=== PATIENT | male | born 1960 | race Caucasian/White ===

== ENCOUNTER 2020-03-21 21:23 | Observation (INO) | payer OTHER ==
[~2020-03-21] VITALS: Ht 190.5 cm; Wt 117.3 kg
[2020-03-21 21:54] LABS: BASO # 0.1 x10^3/uL (0.0-0.2); BASO % 1 % (0-3); EOS # 0.2 x10^3/uL (0.0-0.7); EOS % 2 % (0-3); HEMATOCRIT 42.9 % (39.0-53.0); HEMOGLOBIN 14.3 g/dL (13.0-17.5); LYMPH # 3.2 x10^3/uL (1.0-4.8); LYMPH % 32 % (24-48); MEAN CORPUSCULAR HEMOGLOBIN 30 pg (25-35); MEAN CORPUSCULAR HGB CONC 34 g/dL (31-37); MEAN CORPUSCULAR VOLUME 91 fL (79-100); MONO # 0.7 x10^3/uL (0.0-1.1); MONO % 7 % (0-9); NEUT % 59 % (31-73); PLATELET COUNT 196 x10^3/uL (140-400); RED BLOOD COUNT 4.73 x10^6/uL (4.30-5.70); RED CELL DISTRIBUTION WIDTH 12.8 % (11.5-14.5); WHITE BLOOD COUNT 10.1 x10^3/uL (4.0-11.0)
--- NOTE | 2020-03-21 21:58 | PHYS DOC ---
General Adult EDM: Chief Complaint: TRAUMA ALERT HPI: HPI: Patient is a 59 year old male who presents with here by EMS after he was at [employer] and did not feel good and he stood up and became dizzy, nauseated and passed out hitting his right top of his head on the table causing a 1 inch laceration. Patient also complains of right shoulder blade pain. He rates it is generalized aching at a 2 out of 10. He states is mostly his right shoulder blade that hurts. Patient states he is in need of a tetanus shot. Witnesses stated that he lost consciousness for about 10 seconds. It does appear that patient lost his bladder. Patient takes a baby aspirin a day. His other history is hypertension, high cholesterol, diabetes. States he does not currently have a headache or feel dizzy or nauseated. Patient denies abdominal pain, neck pain, back pain, chest pain, vision changes, numbness or tingling, headache, focal weakness. Patient is moving all extremities. Review of Systems: Review of Systems: Constitutional: Denies fever or chills. [] Eyes: Denies change in visual acuity. [] HENT: Denies nasal congestion or sore throat. [] Respiratory: Denies cough or shortness of breath. [] Cardiovascular: Denies chest pain or edema. [] GI: Denies abdominal pain, nausea, vomiting, bloody stools or diarrhea. [] : Denies dysuria. [] Musculoskeletal: Denies back pain or joint pain. [] Integument: Denies rash. [] Neurologic: Denies headache, focal weakness or sensory changes. [] Endocrine: Denies polyuria or polydipsia. [] Lymphatic: Denies swollen glands. [] Psychiatric: Denies depression or anxiety. [] Heart Score: Risk Factors: Risk Factors: DM, Current or recent (<one month) smoker, HTN, HLP, family h istory of CAD, obesity. Risk Scores: Score 0 - 3: 2.5% MACE over next 6 weeks - Discharge Home Score 4 - 6: 20.3% MACE over next 6 weeks - Admit for Clinical Observation Score 7 - 10: 72.7% MACE over next 6 weeks - Early Invasive Strategies Current Medications: Current Medications Medications (Trade) Dose Ordered Sig/Sharda Start Time Stop Time Status Last Admin Dose Admin Lidocaine HCl (Lidocaine 1% 20ml Vial) 20 ml 1X ONCE 03/21/20 22:00 03/21/20 22:01 Allergies: Allergies: Allergies Coded Allergies Type Severity Reaction Last Updated Verified No Known Drug Allergies 03/21/20 No Physical Exam: PE: Constitutional: Well developed, well nourished, no acute distress, non-toxic appearance. [] HENT: Normocephalic, atraumatic, bilateral external ears normal, oropharynx moist, no oral exudates, nose normal. [] Eyes: PERRLA, EOMI, conjunctiva normal, no discharge. [] Neck: Normal range of motion, no tenderness, supple, no stridor. [] Cardiovascular:Heart rate regular rhythm, no murmur [] Lungs & Thorax: Bilateral breath sounds clear to auscultation [] Abdomen: Bowel sounds normal, soft, no tenderness, no masses, no pulsatile masses. [] Skin: Warm, dry, no erythema, no rash. Laceration to the scalp. [] Back: Right shoulder blade tenderness, no CVA tenderness. [] Extremities: No tenderness, no cyanosis, no clubbing, ROM intact, no edema. [] Neurologic: Alert and oriented X 3, normal motor function, normal sensory function, no focal deficits noted. [] Psychologic: Affect normal, judgement normal, mood normal. [] EKG: EK and read by Dr. Meyer is sinus rhythm and no STEMI Radiology/Procedures: Radiology/Procedures: [] Impression: IMAGING REPORT Signed PATIENT: ANANDA RUIZACCOUNT: [id number] : 1960 LOCATION: ER AGE: 59 SEX: M EXAM STATUS: REG ER ORD. PHYSICIAN: ALFREDO RANKIN APRN REASON: pain, syncope, fall PROCEDURE: SHOULDER 2+V RIGHT Right shoulder AP and scapular x-rays 2 views HISTORY: Syncope, fall, right shoulder pain. FINDINGS: No fracture. No dislocation. No arthritic change. Soft tissues are unremarkable. IMPRESSION: No acute osseous injury of the right shoulder. PA chest and 4 oblique right rib x-rays HISTORY: Fall, syncope, pain. FINDINGS: Heart size upper limits normal. Mediastinal silhouette is normal. No pneumothorax, pulmonary opacities or pleural effusions. Slight irregularity of the right lateral seventh rib only apparent on one of the lower oblique x-rays, a small nondisplaced acute fracture cannot be excluded although this could be an old healed traumatic deformity rather than acute injury. IMPRESSION: No acute process in the chest. Mild irregularity of the right lateral seventh rib a nondisplaced acute traumatic fracture is not excluded. See above. Electronically signed by: Desi Dover MD (03/21/2020 11:40 PM) [facility] DICTATED and SIGNED BY: DESI DOVER MD DATE: 03/21/20 [id number] Course & Med Decision Making: Course & Med Decision Making Pertinent Labs and Imaging studies reviewed. (See chart for details) See HPI. We have placed the patient in a c-collar. Full range of motion of the neck. Full range of motion of all extremities and joints. No joint laxities. No crepitus or cutaneous emphysema over the chest or rib cage. There is no tenderness over her chest or ribs. No focal bony spinal tenderness. PERRLA. No deformity to the skull or the maxillofacial area. EKG shows a sinus rhythm with ventricular premature complexes. CT shows no acute findings. Blood work is unremarkable. I have ordered a incentive spirometer for the patient. Laceration repair Location: Wound and top of scalp laceration Local anesthesia: LETs Interrupted sutures/Internal sutures: 4 Staple Nerve/ligament/muscle damage: None Cleaning and irrigation: Saline and chlorhexidine The appropriate timeout was taken. The area was prepped and draped in the usual sterile fashion. The wound was copiously irrigated with normal saline and chlorhexidine. Patient tolerated well without complication. Dressing was applied to the area follow-up education is given to observe for signs and symptoms of infection, bleeding and to follow-up promptly if these occur. Patient can return in 48 hours for a wound recheck. Sutures to be removed in 7 to 10 days. [] Dragon Disclaimer: Dragon Disclaimer: This electronic medical record was generated, in whole or in part, using a voice recognition dictation system. Departure Departure Impression: Primary Impression: Syncope Qualified Codes: R55 - Syncope and collapse Additional Impressions: Rib fracture Qualified Codes: S22.31XA - Fracture of one rib, right side, initial encounter for closed fracture Scalp laceration Qualified Codes: S01.01XA - Laceration without foreign body of scalp, initial encounter Disposition: 09 ADMITTED INPT THIS HOSP Admitting Physician: DANILO Condition: STABLE Referrals: DEMI ROGERS MD (PCP) ALFREDO RANKIN APRN Mar 21, 2020 21:58
[2020-03-21] MEDS ORDERED: LIDOCAINE 1% Multi-Dose 20 ML VIAL. INJ ONE (22:00)
[2020-03-21 22:11] LABS: ALBUMIN 3.9 g/dL (3.4-5.0); ALBUMIN/GLOBULIN RATIO 1.1 (1.0-1.7); CALCIUM 9.4 mg/dL (8.5-10.1); CREATININE 1.3 mg/dL (0.7-1.3); GFR 56.1; TOTAL BILIRUBIN 0.4 mg/dL (0.2-1.0); TOTAL PROTEIN 7.5 g/dL (6.4-8.2)
[2020-03-21] MEDS ORDERED: LIDOCAINE/EPI/TETRACAINE TOPICAL GEL 3 ML. TP ONE (23:00)
[2020-03-21] MEDS ORDERED: DIPH,PERTUSS(ACELL),TET VAC/PF 0.5 ML SYRINGE. VAX IM ONE (23:00)
--- NOTE | 2020-03-21 23:16 | RAD ---
CT head without contrast. CT cervical spine without contrast PQRS statement: CT scans at this facility use dose reduction including either automated exposure cont rol, iterative reconstructions, and /or weight based radiation dosing via mA and kV modification when appropriate to reduce radiation dose to as low as reasonably achievable. HISTORY: Syncope. Fall. Shoulder pain. CT head findings:No intracranial hemorrhage, mass, hydrocephalus, extra-axial fluid collections or in farction. Orbits, mastoids and bones are unremarkable. IMPRESSION: No acute intracranial CT abnormality. CT cervical spine findings: Craniocervical junction intact. Cervical vertebral body height and alignm ent intact. No fracture of the cervical spine. There are some shallow disc bulges and disc osteophyte s of the cervical spine. There may be mild spinal canal stenoses. Lung apices and paraspinal tissues are unremarkable. IMPRESSION: No acute osseous injury of the cervical spine. Cervical disc disease. Electronically signed by: Fredi Dover MD (03/21/2020 11:10 PM) [facility]
--- NOTE | 2020-03-21 23:47 | RAD ---
Right shoulder AP and scapular x-rays 2 views HISTORY: Syncope, fall, right shoulder pain. FINDINGS: No fracture. No dislocation. No arthritic change. Soft tissues are unremarkable. IMPRESSION: No acute osseous injury of the right shoulder. PA chest and 4 oblique right rib x-rays HISTORY: Fall, syncope, pain. FINDINGS: Heart size upper limits normal. Mediastinal silhouette is normal. No pneumothorax, pulmonar y opacities or pleural effusions. Slight irregularity of the right lateral seventh rib only apparent on one of the lower oblique x-rays, a small nondisplaced acute fracture cannot be excluded although t his could be an old healed traumatic deformity rather than acute injury. IMPRESSION: No acute process in the chest. Mild irregularity of the right lateral seventh rib a nondi splaced acute traumatic fracture is not excluded. See above. Electronically signed by: Fredi Dover MD (03/21/2020 11:40 PM) [facility] [place]
[2020-03-22] VITALS (7 sets, daily range): BP systolic 115–151; BP diastolic 57–87
[2020-03-22] MEDS ORDERED: HALOPERIDOL LACTATE 5 MG/ML VIAL. IVP PRN (01:45)
[2020-03-22] MEDS ORDERED: ONDANSETRON PF 4 MG/2 ML VIAL. IVP PRN (01:45)
[2020-03-22] MEDS ORDERED: diphenhydrAMINE 50 MG/ML VIAL IVP PRN (01:45)
[2020-03-22] MEDS ORDERED: cloNIDine HCL 0.1 MG TABLET PO PRN (01:45)
[2020-03-22] MEDS: MORPHINE SULFATE 2 MG/ML VIAL. IV PRN ×3 (01:58→09:26)
--- NOTE | 2020-03-22 04:41 | EKG ---
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
--- NOTE | 2020-03-22 07:22 | PDOC1 ---
History and Physical Date of Admission Date of Admission DATE: 03/22/20 TIME: 07:20 Identification/Chief Complaint Chief Complaint Syncope Source Source: Patient History of Present Illness History of Present Illness Mr Puri is a 59 year old male w/ PMHx HLD, HTN, DM2 who presents with here by EMS after he was at [employer] and was noted to lose co nsciousness and fall. Prior to this episode he did not feel good and he stood up and became dizzy, nauseated and passed out hitting his right top of his head on the table causing a 1 inch laceration. Patient also complains of right shoulder blade pain. He rates it is generalized aching at a 2 out of 10. He states is mostly his right shoulder blade that hurts as well as his 7th lateral rib. Witnesses stated that he lost consciousness for about 10 seconds, including his and daughter. He did lose bladder function. No seizure like activity noted. No confusion after the episode. States he does not currently have a headache or feel dizzy or nauseated. Patient denies abdominal pain, neck pain, back pain, chest pain, vision changes, numbness or tingling, headache, focal weakness. Patient is moving all extremities. He does note prior to eating they went bowling and he had several, at least 4, beers EKG sinus rhythm and no STEMI with some PVCs CXR and shoulder x-ray with no acute findings, however right lateral 7th rib appears fractured CT shows no acute findings. Blood work is unremarkable. I have ordered a incentive spirometer for the patient. 4 dora applied to scalp. Patient given a tetanus shot. Admitted for further care Past Medical History Cardiovascular: HTN, Hyperlipidemia Endocrine: Diabetes Past Surgical History Past Surgical History: No pertinent history Family History Family History: Diabetes, High Cholestrol, Hypertension Social History Smoke: No ALCOHOL: social Drugs: None Current Problem List Problem List Problems Medical Problems: (1) Rib fracture Status: Acute (2) Scalp laceration Status: Acute (3) Syncope Status: Acute Current Medications Current Medications Current Medications Lidocaine HCl (Lidocaine 1% 20ml Vial) 20 ml 1X ONCE INJ Last administered on 03/21/20at 23:02; Start 03/21/20 at 22:00; Stop 03/21/20 at 22:01; Status DC Diphtheria/ Tetanus/Acell Pertussis (ADACEL TDap SYRINGE) 0.5 ml ONCE ONCE VAX IM Last administered on 03/21/20at 23:03; Start 03/21/20 at 23:00; Stop 03/21/20 at 23:01; Status DC Tetracaine/ Epinephrine/ Lidocaine (Let (Hfed-Urmoahe-Yyvuu) Gel) 3 ml 1X ONCE TP Last administered on 03/21/20at 23:02; Start 03/21/20 at 23:00; Stop 03/21/20 at 23:01; Status DC Morphine Sulfate (Morphine Sulfate) 2 mg PRN Q2HR PRN IV SEVERE PAIN 7-10 Last administered on 03/22/20at 06:35; Start 03/22/20 at 01:45 Ondansetron HCl (Zofran) 4 mg PRN Q6HRS PRN IVP NAUSEA/VOMITING 1ST CHOICE Last administered on 03/22/20at 01:58; Start 03/22/20 at 01:45 Lorazepam (Ativan Inj) 2 mg PRN Q1HR PRN IV For CIWA 8-14; Start 03/22/20 at 01:45 Lorazepam (Ativan Inj) 4 mg PRN Q1HR PRN IV For CIWA 15 or greater; Start 03/22/20 at 01:45 Haloperidol Lactate (Haldol Inj) 5 mg PRN Q4HRS PRN IVP Hallucinatns,Confusn,Delirium; Start 03/22/20 at 01:45 Diphenhydramine HCl (Benadryl) 25 mg PRN Q15MIN PRN IVP EPS symptoms 2'Haldol admin; Start 03/22/20 at 01:45 Clonidine HCl (Catapres) 0.1 mg PRN Q1HR PRN PO SBP > 180 or DBP > 100, MRX3; Start 03/22/20 at 01:45 Allergies Allergies: Coded Allergies: No Known Drug Allergies (Unverified , 03/21/20) ROS General: No: Chills, Night Sweats, Fatigue, Malaise, Appetite, Other PSYCHOLOGICAL ROS: No: Anxiety, Behavioral Disorder, Concentration difficultie, Decreased libido, Depression, Disorientation, Hallucinations, Hostility, Irritablity, Memory difficulties, Mood Swings, Obsessive thoughts, Physical abuse, Sexual abuse, Sleep disturbances, Suicidal ideation, Other Eyes: No Blurry vision, No Decreased vision, No Double vision, No Dry eyes, No Excessive tearing, No Eye Pain, No Itchy Eyes, No Loss of vision, No Photophobia, No Scotomata, No Uses contacts, No Uses glasses, No Other HEENT: YES: Heacaches; No: Visual Changes, Hearing change, Nasal congestion, Nasal discharge, Oral lesions, Sinus pain, Sore Throat, Epistaxis, Sneezing, Snoring, Tinnitus, Ve rtigo, Vocal changes, Other Hematological and Lymphatic: No: Bleeding Problems, Blood Clots, Blood Transfu sions, Brusing, Night Sweats, Pallor, Swollen Lymph Nodes, Other ENDOCRINE: No: Breast Changes, Galactorrhea, Hair Pattern Changes, Hot Flashes, Malaise/lethargy, Mood Swings, Palpitations, Polydipsia/polyuria, Skin Changes, Temperature Intolerance, Unexpected Weight Changes, Other Breast: No New/Changing Breast Lumps, No Nipple changes, No Nipple discharge, No Other Respiratory: No: Cough, Hemoptysis, Orthopnea, Pleuritic Pain, Shortness of breath, SOB with excertion, Sputum Changes, Stridor, Tachypnea, Wheezing, Other Cardiovascular: yes Chest Pain; No Palpitations, No Orthopnea, No Paroxysmal Noc. Dyspnea, No Edema, No Lt Headedness, No Other Gastrointestinal: No Nausea, No Vomiting, No Abdominal Pain, No Diarrhea, No Constipation, No Melena, No Hematochezia, No Other Genitourinary: No Dysuria, No Frequency, No Incontinence, No Hematuria, No Retention, No Discharge, No Urgency, No Pain, No Flank Pain, No Other, No , No , No , No , No , No , No Musculoskeletal: No Gait Disturbance, No Joint Pain, No Joint Stiffness, No Joint Swelling, No Muscle Pain, No Muscular Weakness, No Pain In:, No Swelling In:, No Other Neurological: No Behavorial Changes, No Bowel/Bladder ControlChng, No Confusio n, No Dizziness, No Gait Disturbance, No Headaches, No Impaired Coord/balance, No Memory Loss, No Numbness/Tingling, No Seizures, No Speech Problems, No Tremors, No Visual Changes, No Weakness, No Other Skin: No Dry Skin, No Eczema, No Hair Changes, No Lumps, No Mole Changes, No Mottling, No Nail Changes, No Pruritus, No Rash, No Skin Lesion Changes, No Other, No Acne Physical Exam General: Alert, Oriented X3, Cooperative, No acute distress HEENT: Atraumatic, PERRLA, EOMI, Mucous membr. moist/pink, Other (Right midline frontal scalp laceration, 4 dora. Well approximated) Lungs: Clear to auscultation, Normal air movement Abdomen: Normal bowel sounds, Soft, No tenderness, No hepatosplenomegaly, No masses Rectal Exam: not examined Extremities: No clubbing, No cyanosis, No edema, Normal pulses, No tenderness/swelling Skin: No rashes, No breakdown, No significant lesion Neuro: Normal gait, Normal speech, Strength at 5/5 X4 ext, Normal tone, Sensation intact, Cranial nerves 3-12 NL, Reflexes 2+ Psych/Mental Status: Mental status NL, Mood NL Vitals Vitals Vital Signs Date Time Temp Pulse Resp B/P (MAP) Pulse Ox O2 Delivery O2 Flow Rate FiO2 03/22/20 06:35 18 94 Room Air 03/22/20 03:35 98.1 72 116/68 (84) 98.1 Labs Labs Laboratory Tests Test 03/21/20 21:35 White Blood Count 10.1 x10^3/uL (4.0-11.0) Red Blood Count 4.73 x10^6/uL (4.30-5.70) Hemoglobin 14.3 g/dL (13.0-17.5) Hematocrit 42.9 % (39.0-53.0) Mean Corpuscular Volume 91 fL (79-100) Mean Corpuscular Hemoglobin 30 pg (25-35) Mean Corpuscular Hemoglobin Concent 34 g/dL (31-37) Red Cell Distribution Width 12.8 % (11.5-14.5) Platelet Count 196 x10^3/uL (140-400) Neutrophils (%) (Auto) 59 % (31-73) Lymphocytes (%) (Auto) 32 % (24-48) Monocytes (%) (Auto) 7 % (0-9) Eosinophils (%) (Auto) 2 % (0-3) Basophils (%) (Auto) 1 % (0-3) Neutrophils # (Auto) 6.0 x10^3/uL (1.8-7.7) Lymphocytes # (Auto) 3.2 x10^3/uL (1.0-4.8) Monocytes # (Auto) 0.7 x10^3/uL (0.0-1.1) Eosinophils # (Auto) 0.2 x10^3/uL (0.0-0.7) Basophils # (Auto) 0.1 x10^3/uL (0.0-0.2) Sodium Level 142 mmol/L (136-145) Potassium Level 4.0 mmol/L (3.5-5.1) Chloride Level 105 mmol/L (98-107) Carbon Dioxide Level 24 mmol/L (21-32) Anion Gap 13 (6-14) Blood Urea Nitrogen 22 mg/dL (8-26) Creatinine 1.3 mg/dL (0.7-1.3) Estimated GFR (Cockcroft-Gault) 56.1 BUN/Creatinine Ratio 17 (6-20) Glucose Level 129 mg/dL (70-99) Calcium Level 9.4 mg/dL (8.5-10.1) Total Bilirubin 0.4 mg/dL (0.2-1.0) Aspartate Amino Transf (AST/SGOT) 31 U/L (15-37) Alanine Aminotransferase (ALT/SGPT) 45 U/L (16-63) Alkaline Phosphatase 92 U/L (46-116) Troponin I Quantitative < 0.017 ng/mL (0.000-0.055) LF-Wnl-S-Type Natriuretic Peptide 72 pg/mL (0-124) Total Protein 7.5 g/dL (6.4-8.2) Albumin 3.9 g/dL (3.4-5.0) Albumin/Globulin Ratio 1.1 (1.0-1.7) Laboratory Tests Test 03/21/20 21:35 White Blood Count 10.1 x10^3/uL (4.0-11.0) Red Blood Count 4.73 x10^6/uL (4.30-5.70) Hemoglobin 14.3 g/dL (13.0-17.5) Hematocrit 42.9 % (39.0-53.0) Mean Corpuscular Volume 91 fL (79-100) Mean Corpuscular Hemoglobin 30 pg (25-35) Mean Corpuscular Hemoglobin Concent 34 g/dL (31-37) Red Cell Distribution Width 12.8 % (11.5-14.5) Platelet Count 196 x10^3/uL (140-400) Neutrophils (%) (Auto) 59 % (31-73) Lymphocytes (%) (Auto) 32 % (24-48) Monocytes (%) (Auto) 7 % (0-9) Eosinophils (%) (Auto) 2 % (0-3) Basophils (%) (Auto) 1 % (0-3) Neutrophils # (Auto) 6.0 x10^3/uL (1.8-7.7) Lymphocytes # (Auto) 3.2 x10^3/uL (1.0-4.8) Monocytes # (Auto) 0.7 x10^3/uL (0.0-1.1) Eosinophils # (Auto) 0.2 x10^3/uL (0.0-0.7) Basophils # (Auto) 0.1 x10^3/uL (0.0-0.2) Sodium Level 142 mmol/L (136-145) Potassium Level 4.0 mmol/L (3.5-5.1) Chloride Level 105 mmol/L (98-107) Carbon Dioxide Level 24 mmol/L (21-32) Anion Gap 13 (6-14) Blood Urea Nitrogen 22 mg/dL (8-26) Creatinine 1.3 mg/dL (0.7-1.3) Estimated GFR (Cockcroft-Gault) 56.1 BUN/Creatinine Ratio 17 (6-20) Glucose Level 129 mg/dL (70-99) Calcium Level 9.4 mg/dL (8.5-10.1) Total Bilirubin 0.4 mg/dL (0.2-1.0) Aspartate Amino Transf (AST/SGOT) 31 U/L (15-37) Alanine Aminotransferase (ALT/SGPT) 45 U/L (16-63) Alkaline Phosphatase 92 U/L (46-116) Troponin I Quantitative < 0.017 ng/mL (0.000-0.055) MX-Vin-T-Type Natriuretic Peptide 72 pg/mL (0-124) Total Protein 7.5 g/dL (6.4-8.2) Albumin 3.9 g/dL (3.4-5.0) Albumin/Globulin Ratio 1.1 (1.0-1.7) Images Images PA chest and 4 oblique Right rib x-ray: Heart size upper limits normal. Mediastinal silhouette is normal. No pneumothorax, pulmonary opacities or pleural effusions. Slight irregularity of the right lateral seventh rib only apparent on one of the lower oblique x-rays, a small nondisplaced acute fracture cannot be excluded although this could be an old healed traumatic deformity rather than acute injury. IMPRESSION: No acute process in the chest. Mild irregularity of the right lateral seventh rib a nondisplaced acute traumatic fracture is not excluded. See above. Right shoulder AP and scapular x-rays 2 views: FINDINGS: No fracture. No dislocation. No arthritic change. Soft tissues are unremarkable. IMPRESSION: No acute osseous injury of the right shoulder. CT head and cervical spine: CT head findings:No intracranial hemorrhage, mass, hydrocephalus, extra-axial fluid collections or infarction. Orbits, mastoids and bones are unremarkable. IMPRESSION: No acute intracranial CT abnormality. CT cervical spine findings: Craniocervical junction intact. Cervical vertebral body height and alignment intact. No fracture of the cervical spine. There are some shallow disc bulges and disc osteophytes of the cervical spine. There may be mild spinal canal stenoses. Lung apices and paraspinal tissues are unremarkable. IMPRESSION: No acute osseous injury of the cervical spine. Cervical disc disease. VTE Prophylaxis Ordered VTE Prophylaxis Devices: No VTE Pharmacological Prophylaxi: Yes Assessment/Plan Assessment/Plan A/P: Syncope - negative cardiac w/u. no brain lesions. Likely vasovagal syncope given alcohol intake, food intake and loss of bladder. Will check echo and PVR, likely d/c home later today Fracture of one rib, right side, initial encounter for closed fracture Scalp laceration - 4 dora. Can remove in 10 days HTN - cont BB HLD - cont statin DM2 - sliding scale, hold metformin for contrast exposure FEN - ADA diet PPX - SCDs FULL CODE Dispo - observation, likely d/c later today Justifications for Admission Other Justification ALYSHA MAY MD Mar 22, 2020 07:22
[2020-03-22 09:22] LABS: CHOLESTEROL/HDL RATIO 2.4
--- NOTE | 2020-03-22 09:24 | PDOC2 ---
ORALIA LITTLE VP PRODUCT 03/22/20 0924: CARDIAC CONSULT DATE OF CONSULT Date of Consult DATE: 03/22/20 TIME: 09:17 REASON FOR CONSULT Reason for Consult: syncope REFERRING PHYSICIAN Referring Physician: Dr. Norman SOURCE Source: Chart review, Patient HISTORY OF PRESENT ILLNESS HISTORY OF PRESENT ILLNESS This is a 59 yo male who presented secondary to syncope episode. Patient was a [employer] restaurant yesterday and began not feeling well. Stood up and began feeling dizzy and nauseated. Subsequently passed out. Hit his head on the table, sustained an approximate 1" laceration his right head and also right side. Reportedly was unconscious for about 10 seconds and had loss of bladder function. No previous dizziness or syncopal episode. Denies any chest pain, palpitations, shortness of breath. Has felt well since admission. No acute event noted on tele. PAST MEDICAL HISTORY Cardiovascular: HTN, Hyperlipidemia Endocrine: Diabetes PAST SURGICAL HISTORY Past Surgical History: Other (left knee surgery ) FAMILY HISTORY Family History: Coronary Artery Disease (brother, mother, father ), Diabetes, Heart Disease SOCIAL HISTORY Smoke: Quit (7 years ago) ALCOHOL: other (daily wine. occasional margaritas) Drugs: None Lives: with Family CURRENT MEDICATIONS CURRENT MEDICATIONS Current Medications Medications (Trade) Dose Ordered Sig/Sharda Route PRN Reason Start Time Stop Time Status Last Admin Dose Admin Lidocaine HCl (Lidocaine 1% 20ml Vial) 20 ml 1X ONCE INJ 03/21/20 22:00 03/21/20 22:01 DC 03/21/20 23:02 Diphtheria/ Tetanus/Acell Pertussis (ADACEL TDap SYRINGE) 0.5 ml ONCE ONCE VAX IM 03/21/20 23:00 03/21/20 23:01 DC 03/21/20 23:03 Tetracaine/ Epinephrine/ Lidocaine (Let (Frlb-Ssotdgn-Lvuei) Gel) 3 ml 1X ONCE TP 03/21/20 23:00 03/21/20 23:01 DC 03/21/20 23:02 Morphine Sulfate (Morphine Sulfate) 2 mg PRN Q2HR PRN IV SEVERE PAIN 7-10 03/22/20 01:45 03/22/20 06:35 Ondansetron HCl (Zofran) 4 mg PRN Q6HRS PRN IVP NAUSEA/VOMITING 1ST CHOICE 03/22/20 01:45 03/22/20 01:58 ALLERGIES ALLERGIES: Coded Allergies: No Known Drug Allergies (Unverified , 03/21/20) ROS Review of System 14 point ROS conducted with pertinent positives noted above in HPI PHYSICAL EXAM General: Alert, Oriented X3, Cooperative, No acute distress HEENT: Atraumatic, Mucous membr. moist/pink Lungs: Clear to auscultation Heart: Regular rate, Normal S1, Normal S2 Abdomen: Soft, No tenderness Extremities: No edema, Normal pulses Skin: No significant lesion Neuro: Normal speech, Sensation intact Psych/Mental Status: Mental status NL, Mood NL MUSCULOSKELETAL: Osteoarthritic changes both hands VITALS/I&O VITALS/I&O: Vital Signs Date Time Temp Pulse Resp B/P (MAP) Pulse Ox O2 Delivery O2 Flow Rate FiO2 03/22/20 07:10 86 151/87 (108) 03/22/20 07:00 98.8 20 93 Room Air 98.8 I & O 03/21/20 03/21/20 03/22/20 15:00 23:00 07:00 Intake Total 200 ml Balance 200 ml LABS Lab: Laboratory Tests Test 03/21/20 21:35 03/22/20 07:50 White Blood Count 10.1 x10^3/uL (4.0-11.0) Red Blood Count 4.73 x10^6/uL (4.30-5.70) Hemoglobin 14.3 g/dL (13.0-17.5) Hematocrit 42.9 % (39.0-53.0) Mean Corpuscular Volume 91 fL (79-100) Mean Corpuscular Hemoglobin 30 pg (25-35) Mean Corpuscular Hemoglobin Concent 34 g/dL (31-37) Red Cell Distribution Width 12.8 % (11.5-14.5) Platelet Count 196 x10^3/uL (140-400) Neutrophils (%) (Auto) 59 % (31-73) Lymphocytes (%) (Auto) 32 % (24-48) Monocytes (%) (Auto) 7 % (0-9) Eosinophils (%) (Auto) 2 % (0-3) Basophils (%) (Auto) 1 % (0-3) Neutrophils # (Auto) 6.0 x10^3/uL (1.8-7.7) Lymphocytes # (Auto) 3.2 x10^3/uL (1.0-4.8) Monocytes # (Auto) 0.7 x10^3/uL (0.0-1.1) Eosinophils # (Auto) 0.2 x10^3/uL (0.0-0.7) Basophils # (Auto) 0.1 x10^3/uL (0.0-0.2) Sodium Level 142 mmol/L (136-145) Potassium Level 4.0 mmol/L (3.5-5.1) Chloride Level 105 mmol/L (98-107) Carbon Dioxide Level 24 mmol/L (21-32) Anion Gap 13 (6-14) Blood Urea Nitrogen 22 mg/dL (8-26) Creatinine 1.3 mg/dL (0.7-1.3) Estimated GFR (Cockcroft-Gault) 56.1 BUN/Creatinine Ratio 17 (6-20) Glucose Level 129 mg/dL (70-99) H Calcium Level 9.4 mg/dL (8.5-10.1) Total Bilirubin 0.4 mg/dL (0.2-1.0) Aspartate Amino Transferase (AST) 31 U/L (15-37) Alanine Aminotransferase (ALT) 45 U/L (16-63) Alkaline Phosphatase 92 U/L (46-116) Troponin I Quantitative < 0.017 ng/mL (0.000-0.055) HE-Jlq-C-Type Natriuretic Peptide 72 pg/mL (0-124) Total Protein 7.5 g/dL (6.4-8.2) Albumin 3.9 g/dL (3.4-5.0) Albumin/Globulin Ratio 1.1 (1.0-1.7) Glucose (Fingerstick) 129 mg/dL (70-99) H Laboratory Tests 03/21/20 21:35 Laboratory Tests 03/21/20 21:35 ASSESSMENT/PLAN ASSESSMENT/PLAN 1. Syncope, fall; CT head without acute findings. etiology unclear. EKG without acute changes. 2. Scalp laceration; s/p stapling 3. Right rib nondisplaced fracture 4. Hypertension; controlled 5. Hyperlipidemia 6. Diabetes, II 7. Strong family h/o CAD Recommendations Trend troponin Lipids Add ASA Echo to assess LV systolic function, r/o cardiac anomalies Monitor tele Consider outpatient event monitor Outpatient ischemic evaluation give risk factors. Follow up in our office with Dr. Jay as scheduled. DEMETRIO JAY MD 03/22/202024: CARDIAC CONSULT ASSESSMENT/PLAN ASSESSMENT/PLAN Pt. seen and examined. Agree with above [employer] note. Syncope likely due to combination of nuasea, meds and overall vasovagal phenomenon. Outpt ischemic eval. Thanks ORALIA LITTLE APRN Mar 22, 2020 09:24 DEMETRIO JAY MD Mar 22, 2020 20:25
[2020-03-22] MEDS ORDERED: METF500T16 PO (09:53)
[2020-03-22] MEDS ORDERED: TRANDOLAPRIL PO (09:53)
[2020-03-22] MEDS ORDERED: ATOR20TA58 PO (09:53)
[2020-03-22] MEDS ORDERED: HYDR12.58 PO (09:53)
[2020-03-22] MEDS ORDERED: METO-239 PO (09:53)
--- NOTE | 2020-03-22 12:04 | NUR ---
SS following for discharge planning. SS reviewed pt chart and discussed with pt RN. Pt is from home with spouse and is currently on room air. Cardiology consulted. PT/OT ordered. SS will continue to follow for discharge planning.
[2020-03-22] MEDS ORDERED: LIDOCAINE (700MG/PATCH) PATCH. TD SCH (12:15)
[2020-03-22] MEDS ORDERED: traMADol 50 MG TABLET PO PRN (12:15)
[2020-03-22] MEDS ORDERED: METOPROLOL SUCC 24HR ER 25 MG TAB.ER.24H. PO SCH (12:45)
[2020-03-22] MEDS ORDERED: TRAM50TA PO (15:12)
--- NOTE | 2020-03-22 15:17 | PDOC3 ---
Discharge Summary Visit Information Date of Admission: Mar 22, 2020 Date of Discharge: Mar 22, 2020 Admitting Diagnosis: Syncope Final Diagnosis Problems Medical Problems: (1) Rib fracture Status: Acute (2) Scalp laceration Status: Acute (3) Syncope Status: Acute Brief Hospital Course Allergies Allergies Coded Allergies Type Severity Reaction Last Updated Verified No Known Drug Allergies 03/21/20 No Vital Signs Vital Signs Date Time Temp Pulse Resp B/P (MAP) Pulse Ox O2 Delivery O2 Flow Rate FiO2 03/22/20 15:00 98.2 82 20 115/57 (76) 95 Room Air 98.2 Lab Results Laboratory Tests Test 03/21/20 21:35 03/22/20 07:45 03/22/20 07:50 03/22/20 11:43 White Blood Count 10.1 x10^3/uL (4.0-11.0) Red Blood Count 4.73 x10^6/uL (4.30-5.70) Hemoglobin 14.3 g/dL (13.0-17.5) Hematocrit 42.9 % (39.0-53.0) Mean Corpuscular Volume 91 fL (79-100) Mean Corpuscular Hemoglobin 30 pg (25-35) Mean Corpuscular Hemoglobin Concent 34 g/dL (31-37) Red Cell Distribution Width 12.8 % (11.5-14.5) Platelet Count 196 x10^3/uL (140-400) Neutrophils (%) (Auto) 59 % (31-73) Lymphocytes (%) (Auto) 32 % (24-48) Monocytes (%) (Auto) 7 % (0-9) Eosinophils (%) (Auto) 2 % (0-3) Basophils (%) (Auto) 1 % (0-3) Neutrophils # (Auto) 6.0 x10^3/uL (1.8-7.7) Lymphocytes # (Auto) 3.2 x10^3/uL (1.0-4.8) Monocytes # (Auto) 0.7 x10^3/uL (0.0-1.1) Eosinophils # (Auto) 0.2 x10^3/uL (0.0-0.7) Basophils # (Auto) 0.1 x10^3/uL (0.0-0.2) Sodium Level 142 mmol/L (136-145) Potassium Level 4.0 mmol/L (3.5-5.1) Chloride Level 105 mmol/L (98-107) Carbon Dioxide Level 24 mmol/L (21-32) Anion Gap 13 (6-14) Blood Urea Nitrogen 22 mg/dL (8-26) Creatinine 1.3 mg/dL (0.7-1.3) Estimated GFR (Cockcroft-Gault) 56.1 BUN/Creatinine Ratio 17 (6-20) Glucose Level 129 mg/dL (70-99) Calcium Level 9.4 mg/dL (8.5-10.1) Total Bilirubin 0.4 mg/dL (0.2-1.0) Aspartate Amino Transf (AST/SGOT) 31 U/L (15-37) Alanine Aminotransferase (ALT/SGPT) 45 U/L (16-63) Alkaline Phosphatase 92 U/L (46-116) Troponin I Quantitative < 0.017 ng/mL (0.000-0.055) < 0.017 ng/mL (0.000-0.055) ST-Baz-U-Type Natriuretic Peptide 72 pg/mL (0-124) Total Protein 7.5 g/dL (6.4-8.2) Albumin 3.9 g/dL (3.4-5.0) Albumin/Globulin Ratio 1.1 (1.0-1.7) Triglycerides Level 80 mg/dL (0-150) Cholesterol Level 142 mg/dL (0-200) LDL Cholesterol, Calculated 66 mg/dL (0-100) VLDL Cholesterol, Calculated 16 mg/dL (0-40) Non-HDL Cholesterol Calculated 82 mg/dL (0-129) HDL Cholesterol 60 mg/dL (40-60) Cholesterol/HDL Ratio 2.4 Glucose (Fingerstick) 129 mg/dL (70-99) 101 mg/dL (70-99) Test 03/22/20 12:35 Troponin I Quantitative < 0.017 ng/mL (0.000-0.055) Laboratory Tests Test 03/21/20 21:35 03/22/20 07:45 03/22/20 07:50 03/22/20 11:43 White Blood Count 10.1 x10^3/uL (4.0-11.0) Red Blood Count 4.73 x10^6/uL (4.30-5.70) Hemoglobin 14.3 g/dL (13.0-17.5) Hematocrit 42.9 % (39.0-53.0) Mean Corpuscular Volume 91 fL (79-100) Mean Corpuscular Hemoglobin 30 pg (25-35) Mean Corpuscular Hemoglobin Concent 34 g/dL (31-37) Red Cell Distribution Width 12.8 % (11.5-14.5) Platelet Count 196 x10^3/uL (140-400) Neutrophils (%) (Auto) 59 % (31-73) Lymphocytes (%) (Auto) 32 % (24-48) Monocytes (%) (Auto) 7 % (0-9) Eosinophils (%) (Auto) 2 % (0-3) Basophils (%) (Auto) 1 % (0-3) Neutrophils # (Auto) 6.0 x10^3/uL (1.8-7.7) Lymphocytes # (Auto) 3.2 x10^3/uL (1.0-4.8) Monocytes # (Auto) 0.7 x10^3/uL (0.0-1.1) Eosinophils # (Auto) 0.2 x10^3/uL (0.0-0.7) Basophils # (Auto) 0.1 x10^3/uL (0.0-0.2) Sodium Level 142 mmol/L (136-145) Potassium Level 4.0 mmol/L (3.5-5.1) Chloride Level 105 mmol/L (98-107) Carbon Dioxide Level 24 mmol/L (21-32) Anion Gap 13 (6-14) Blood Urea Nitrogen 22 mg/dL (8-26) Creatinine 1.3 mg/dL (0.7-1.3) Estimated GFR (Cockcroft-Gault) 56.1 BUN/Creatinine Ratio 17 (6-20) Glucose Level 129 mg/dL (70-99) Calcium Level 9.4 mg/dL (8.5-10.1) Total Bilirubin 0.4 mg/dL (0.2-1.0) Aspartate Amino Transf (AST/SGOT) 31 U/L (15-37) Alanine Aminotransferase (ALT/SGPT) 45 U/L (16-63) Alkaline Phosphatase 92 U/L (46-116) Troponin I Quantitative < 0.017 ng/mL (0.000-0.055) < 0.017 ng/mL (0.000-0.055) BL-Nqh-U-Type Natriuretic Peptide 72 pg/mL (0-124) Total Protein 7.5 g/dL (6.4-8.2) Albumin 3.9 g/dL (3.4-5.0) Albumin/Globulin Ratio 1.1 (1.0-1.7) Triglycerides Level 80 mg/dL (0-150) Cholesterol Level 142 mg/dL (0-200) LDL Cholesterol, Calculated 66 mg/dL (0-100) VLDL Cholesterol, Calculated 16 mg/dL (0-40) Non-HDL Cholesterol Calculated 82 mg/dL (0-129) HDL Cholesterol 60 mg/dL (40-60) Cholesterol/HDL Ratio 2.4 Glucose (Fingerstick) 129 mg/dL (70-99) 101 mg/dL (70-99) Test 03/22/20 12:35 Troponin I Quantitative < 0.017 ng/mL (0.000-0.055) Brief Hospital Course Mr Puri is a 59 year old male w/ PMHx HLD, HTN, DM2 who presents with here by EMS after he was at [employer] and was noted to lose consciousness and fall. Prior to this episode he did not feel good and he stood up and became dizzy, nauseated and passed out hitting his right top of his head on the table causing a 1 inch laceration. Patient also complains of right shoulder blade pain. He rates it is generalized aching at a 2 out of 10. He states is mostly his right shoulder blade that hurts as well as his 7th lateral rib. Witnesses stated that he lost consciousness for about 10 seconds, including his and daughter. He did lose bladder function. No seizure like activity noted. No confusion after the episode. States he does not currently have a headache or feel dizzy or nauseated. Patient denies abdominal pain, neck pain, back pain, chest pain, vision changes, numbness or tingling, headache, focal weakness. Patient is m oving all extremities. He does note prior to eating they went bowling and he had several, at least 4, beers EKG sinus rhythm and no STEMI with some PVCs CXR and shoulder x-ray with no acute findings, however right lateral 7th rib appears fractured CT shows no acute findings. Blood work is unremarkable. I have ordered a incentive spirometer for the patient. 4 dora applied to scalp. Patient given a tetanus shot. No telemetry events. No abnormalities on echocardiogram. Consults: Cardiology Ultimately this was likely a vasovagal event as he has no seizure history. Postvoid residual showed no urinary retention bladder likely loss of bladder function due to a fall prior to his event. As he and his noted to have a planned trip to [place] [facility] in the next 12 days have advised him to follow-up with his primary care doctor in the next 10 days for staple removal from the head and 4% [id number] Lidoderm patches and as needed tramadol for pain as the rib fracture will take time to heal. Advised to cut back on alcohol as well. Problem list: Syncope - negative cardiac w/u. no brain lesions. Likely vasovagal syncope given alcohol intake, food intake and loss of bladder. Will check echo and PVR, likely d/c home later today Fracture of one rib, right side, initial encounter for closed fracture Scalp laceration - 4 dora. Can remove in 10 days HTN - cont BB HLD - cont statin DM2 - sliding scale, hold metformin for contrast exposure Greater than 75 minutes spent on same day admit and d/c Discharge Information Condition at Discharge: Improved Follow Up: Weeks (1) Disposition/Orders: D/C to Home Scheduled Atorvastatin Calcium (Atorvastatin Calcium) 20 Mg Tablet, 20 MG PO HS for FOR CHOLESTEROL, #30 Ref 0 (Reported) Entered as Reported by: Kurt Yoder on 03/22/20952 Last Action: Continued on 03/22/201241 by ALYSHA MAY MD Metformin Hcl (Metformin Hcl) 500 Mg Tablet, 500 MG PO BIDWMEALS for ANTI- DIABETIC, Ref 0 (Reported) Entered as Reported by: Kurt Yoder on 03/22/20952 Last Action: New Order on 03/22/20952 by Kurt Yoder Metoprolol Succinate (Metoprolol Succinate ( Xl )) 25 Mg Tab.er.24h, 1 TAB PO DAILY for heart and blood pressure, #30 Ref 5 (Reported) Entered as Reported by: Kurt Yoder on 03/22/20952 Last Action: Continued on 03/22/201241 by ALYSHA MAY MD [trnadolapril] , 4 MG PO DAILY, (Reported) Entered as Reported by: Kurt Yoder on 03/22/20952 Last Action: New Order on 03/22/20952 by Kurt Yoder Scheduled PRN Tramadol Hcl (Tramadol Hcl) 50 Mg Tablet, 50 MG PO PRN Q6HRS PRN for PAIN for 6 Days, #24 Prescribed by: ALYSHA MAY MD on 03/22/20 1513 Discontinued Medications Hydrochlorothiazide (Hydrochlorothiazide Tablet) 12.5 Mg Tablet, 12.5 MG PO DAILY for DIURETIC, Ref 0 (Reported) Entered as Reported by: Kurt Yoder on 03/22/20952 Last Action: New Order on 03/22/20952 by Kurt Yoder Justicifation of Admission Dx: Justifications for Admission: Justification of Admission Dx: Yes ALYSHA MAY MD Mar 22, 2020 15:17
--- NOTE | 2020-03-22 16:20 | NUR ---
PATIENT DISCHARGED TO HOME. DISCHARGE INSTRUCTIONS GIVEN. PIV AND HEART MONITOR REMOVED. ESCORTED PATIENT PER AMBULATION INTO A PRIVATE VEHICLE.
[2020-03-22] MEDS ORDERED: PATCH REMOVAL. MC SCH (21:00)
[2020-03-22] MEDS ORDERED: ATORVASTATIN CALCIUM 20 MG TABLET PO SCH (21:00)
--- NOTE | 2020-03-22 21:51 | CARD ---
MR#: [id number] Date of Study: 03/22/2020 Ordering Physician: ORALIA LITTLE, Referring Physician: ORALIA LITTLE, Tech: Roro Page, [facility] APPROVED REPORT EXAM: Two-dimensional and M-mode echocardiogram with Doppler and color Doppler. Other Information Quality : AverageHR: 73bpm INDICATION Syncope RISK FACTORS Hypertension Hyperlipidemia Diabetes 2D DIMENSIONS Left Atrium(2D)2.7 (1.6-4.0cm)IVSd1.1 (0.7-1.1cm) Aortic Root(2D)3.5 (2.0-3.7cm)LVDd5.8 (3.9-5.9cm) LVOT Diameter2.0 (1.8-2.4cm)PWd1.2 (0.7-1.1cm) LVDs2.8 (2.5-4.0cm)FS (%) 52.3 % SV131.3 mlLVEF(%)55.0 (>50%) Aortic Valve AoV Peak Cruz.161.8cm/sAoV VTI34.5cm AO Peak GR.10.5mmHgLVOT VTI 23.80cm AO Mean GR.7mmHg Mitral Valve MV E Swjrdvxp92.5cm/sMV DECEL [id number] MV A Cnhjwxtk89.7cm/sE/A Ratio0.8 TDI Lateral E' P. V11.84cm/sMedial E' P. V7.21cm/s E/Lateral E'6.1E/Medial E'10.1 Tricuspid Valve TR P. Lywqcdab268vi/sTR Peak Gr.28mmHg Pulmonary Vein S1 Ijqjivsu77.6cm/sS2 Nqeakono15.95cm/s D2 Pwxstiqe57.9cm/sPVa qxddeyro688nrhp LEFT VENTRICLE The left ventricle is normal size. There is normal left ventricular wall thickness. Left ventricular systolic function is normal. The Ejection Fraction is 50-55%. There is normal LV segmental wall motio n. Transmitral Doppler flow pattern is Grade I-abnormal relaxation pattern. RIGHT VENTRICLE The right ventricle is normal size. There is normal right ventricular wall thickness. The right ventr icular systolic function is normal. ATRIA The left atrium size is normal. The right atrium size is normal. The interatrial septum is intact wit h no evidence for an atrial septal defect or patent foramen ovale as noted on 2-D or Doppler imaging. AORTIC VALVE The aortic valve is normal in structure and function. No aortic regurgitation is present. There is no aortic valvular stenosis. Calculated aortic valve area is 2.22 cm2 with maximum pressure gradient of 12 mmHg and mean pressure gradient of 6 mmHg. MITRAL VALVE The mitral valve is normal in structure and function. There is no evidence of mitral valve prolapse. There is no mitral valve stenosis. Doppler and Color-flow revealed trace mitral regurgitation. TRICUSPID VALVE The tricuspid valve is normal in structure and function. Doppler and Color Flow revealed trace tricus pid regurgitation with an estimated PAP of 38 mmHg. There is no tricuspid valve stenosis. PULMONIC VALVE The pulmonic valve is not well visualized. Doppler and Color Flow revealed no pulmonic valvular regur gitation. There is no pulmonic valvular stenosis. GREAT VESSELS The aortic root is normal in size. The IVC was not visualized. PERICARDIAL EFFUSION There is no evidence of significant pericardial effusion. Critical Notification Critical Value: No <Conclusion> Left ventricular systolic function is normal. The Ejection Fraction is 50-55%. There is normal LV segmental wall motion. Signed by : Brandon Jay, Electronically Approved : 03/22/2020 21:51:05
[2020-03-23] MEDS ORDERED: ASPIRIN ENTERIC COATED 81 MG TABLET.DR. PO SCH (08:00)
== END 2020-03-22 16:20 | disposition home or self-care (01) ==
LOC: ER 21:23 → 2 NORTH 03-22 00:40
PROVIDERS: ADMIT Internal Medicine; ATTEND Internal Medicine
DX: S22.31XA Fracture of one rib, right side, initial encounter for closed fracture (principal); S01.01XA Laceration without foreign body of scalp, initial encounter; R55 Syncope and collapse; I10 Essential (primary) hypertension; E11.9 Type 2 diabetes mellitus without complications; E78.00 Pure hypercholesterolemia, unspecified; E78.5 Hyperlipidemia, unspecified; Z79.82 Long term (current) use of aspirin; Z87.891 Personal history of nicotine dependence; Z23 Encounter for immunization; Z79.84 Long term (current) use of oral hypoglycemic drugs; W18.30XA Fall on same level, unspecified, initial encounter; Y93.89 Activity, other specified; Y92.89 Other specified places as the place of occurrence of the external cause; Y99.8 Other external cause status
CPT/HCPCS: 12001; 36415; 70450; 71101; 72125; 73030; 80053; 80061; 82962; 83880; 84484; 85025; 90471; 90715; 93005; 93306; 96374; 96375; 97162; 97166; 97535; 99285; G0378; J2270; J2405; J3490; G0379

== ENCOUNTER → 2020-04-13 | Outpatient (CLI) | payer OTHER ==
[2020-03-22 15:00] VITALS: BP 115/57
[~2020-04-13] MED LIST: ATOR20TA58 PO; HYDR12.58 PO; METF500T16 PO; METO-239 PO; REGADENOSON 0.4 MG/5 ML DISP.SYRIN. IV ONE; TRAM50TA PO; TRANDOLAPRIL PO
--- NOTE | 2020-04-13 16:08 | RAD ---
MR#: [id number] Date of Study: 04/13/2020 Ordering Physician: DEMETRIO JAY, Referring Physician: SERVANDO FLANAGAN Tech: TERRIE Blanco ARRT (Angella) (N) APPROVED REPORT Test Type: Pharmacological Stress Nurse/Tech: NOHEMY NICHOLSON Test Indications: DYSPNEA, SYNCOPE Cardiac History: SYNCOPE, HTN, SEE EMR Medications: SEE EMR Medical History: SEE EMR Resting ECG: SR W/PVC'S Resting Heart Rate: 67 bpm Resting Blood Pressure: 137/95mmHg Pretest Chest Pain: No chest pain Nurse/Tech Notes S1S2, LUNGS CTA, DENIES CP OR SOA, ONLY COMPLAINT IS FROM HIS BROKEN RIB. VSS. EKG MACHINE STOPPED WV INTING DURING TESTING, HAD TO MANUALLY PRINT THE TEST. Consent: The procedure was explained to the patient in lay terms. Informed consent was witnessed. Reji eout was entered into [employer]. History and Stress Test performed by RT Sonali (R) (N) Pharm. Details Pharmacologic stress testing was performed using 0.4mg per 5ml of regadenoson given intravenously ove r 7-10 seconds. Stress Symptoms PT TOLERATED WELL, DENIED CP OR SOA, C/O UPSET STOMACH AND SLIGHT HEADACHE. VSS. POST EXERCISE Reason for Termination: Infusion complete Max HR: 98 bpm Max Blood Pressure: 155/73mmHg Blood Pressure response to exercise: Normal blood pressure response during stress. Heart Rate response to exercise: WNL Chest Pain: No. Arrhythmia: Yes. PVC'S NOTED, NO SIGNINFICANT CHANGES FROM BASELINE EKG. ST Change: No. INTERPRETATION Stress EKG Conclusion: No evidence of stress induced EKG changes. Imaging Protocol IMAGE PROTOCOL: Rest Tc-99m/stress Tc-99m 1 day Rest: Stress: Viability: Radiopharm.Tc99m NnykxvbjnBa41o Sestamibi Ueuw73kFu 33mCi Img Date 04/13/2020 04/13/2020 Inj-Img [id number]. 60min. Rest Admin Site:IV - Right AntecubitalAdministrator:TERRIE Blanco, ARRT (R)(N) Stress Admin Site: IV - Right AntecubitalAdministrator: Jorge Miller, RT (R)(N) STRESS DATA End Diast. Vol.113.0mlAv. Heart Rate80.0bpm End Syst. Vol.28.0mlCO Index BSA0.0L/min Myocardial Fvst899.0gEject. Txprprlq78.0% Stress Rates Pk. Fill Rate3.22EDV/secLVtime Pk. Fill 133.40msec Pk. Empty Rate5.10ESV/secLVtime Pk. Wwfpg026.30msec 02/21 Pk. Fill1.92EDV/sec Stress Scores Regional WT0.00Summed WT5.00 Regional WM0.00Summed WM0.00 The rest and stress images show normal perfusion, normal contraction and thickening. LV Perf. Quant 17 Seg. SSS0.00 17 Seg. SRS7.00 17 Seg. SDS0.00 Stress Defect Extent (% LAD)0.00Rest Defect Extent (% LAD)13.10Rev. Defect Extent (% LAD)0.00 Stress Defect Extent (% LCX) 0.00Rest Defect Extent (% LCX)18.80Rev. Defect Extent (% LCX)0.00 Stress Defect Extent (% RCA)0.00Rest Defect Extent (% RCA)1.10Rev. Defect Extent (% RCA)0.00 Stress Defect Extent (% ESTHELA)0.00Rest Defect Extent (% ESTHELA)12.20Rev. Defect Extent (% ESTHELA)0.00 Other Information Quality:Average Risk Assessment: Low Risk Conclusion 1. No evidence of EKG changes with stress testing. 2. Normal perfusion at stress/rest. 3. Low risk study. 4. EF > 60%. Signed by : Demetrio Jay, Electronically Approved : 04/13/2020 16:08:14
== END ==
LOC: NM 10:19
PROVIDERS: ATTEND Internal Medicine Cardiovascular Disease
DX: R55 Syncope and collapse (principal); R06.00 Dyspnea, unspecified
CPT/HCPCS: 78452; 93017; A9500; J2785